=== PATIENT | female | born 1940 | race Caucasian/White ===

== ENCOUNTER 2023-04-19 19:45 | Emergency (ER) | payer OTHER ==
[~2023-04-19] VITALS: Ht 167.6 cm; Wt 81.6 kg
[2023-04-19] MEDS ORDERED: TYLENOL325 M1 PO (21:26)
== END 2023-04-19 21:32 | disposition home or self-care (01) ==
LOC: ED 19:45
DX: S86.912A Strain of unspecified muscle(s) and tendon(s) at lower leg level, left leg, initial encounter (principal); E11.9 Type 2 diabetes mellitus without complications; Z88.0 Allergy status to penicillin; W19.XXXA Unspecified fall, initial encounter; Y93.89 Activity, other specified; Y92.89 Other specified places as the place of occurrence of the external cause; Y99.8 Other external cause status

== ENCOUNTER → 2023-09-10 | Outpatient (CLI) | payer OTHER ==
[~2023-09-10] MED LIST: DOCUSATE SOD100 MG PO; HUMALOG100 UNIT/1 SC; HYDROCODONE-AC1 EAC2 PO; NYAMYC15 GM T; TYLENOL325 M1 PO
== END | disposition home or self-care (01) ==
LOC: ORTHO 01:52
PROVIDERS: ATTEND Orthopaedic Surgery
DX: S52.521D Torus fracture of lower end of right radius, subsequent encounter for fracture with routine healing (principal); X58.XXXD Exposure to other specified factors, subsequent encounter

== ENCOUNTER → 2023-10-10 | Outpatient (CLI) | payer OTHER | END | disposition home or self-care (01) | LOC: ORTHO 04:02 | PROVIDERS: ATTEND Orthopaedic Surgery | DX: S52.531D Colles' fracture of right radius, subsequent encounter for closed fracture with routine healing (principal); M17.12 Unilateral primary osteoarthritis, left knee; M79.89 Other specified soft tissue disorders; X58.XXXD Exposure to other specified factors, subsequent encounter ==